=== PATIENT | female | born 1950 | race Caucasian/White ===

== ENCOUNTER → 2016-06-13 | Outpatient (REF) | payer MEDICARE, OTHER ==
[2016-06-13 12:20] LABS: INR 3.45
== END ==
LOC: M LABDRAW1 11:33
PROVIDERS: ATTEND Internal Medicine Pulmonary Disease
DX: Z86.718 Personal history of other venous thrombosis and embolism (principal); Z79.01 Long term (current) use of anticoagulants

== ENCOUNTER → 2016-07-04 | Outpatient (REF) | payer MEDICARE, OTHER ==
[2016-07-04 12:33] LABS: INR 2.94
== END ==
LOC: M LABDRAW1 11:45
PROVIDERS: ATTEND Internal Medicine Pulmonary Disease
DX: Z51.81 Encounter for therapeutic drug level monitoring (principal); Z79.01 Long term (current) use of anticoagulants; Z86.718 Personal history of other venous thrombosis and embolism

== ENCOUNTER → 2016-07-30 | Outpatient (REF) | payer MEDICARE, OTHER ==
[2016-07-30 16:12] LABS: INR 3.69
== END ==
LOC: M LABDRAW1 15:33
PROVIDERS: ATTEND Internal Medicine Pulmonary Disease
DX: Z51.81 Encounter for therapeutic drug level monitoring (principal); Z79.01 Long term (current) use of anticoagulants; Z86.718 Personal history of other venous thrombosis and embolism

== ENCOUNTER → 2016-08-22 | Outpatient (CLI) | payer MEDICARE, OTHER ==
--- NOTE | 2016-08-22 09:47 | REP ---
DIAGNOSTIC MAMMOGRAM RIGHT BREAST: Diagnostic mammogram right breast performed with routine and magnification views obtained. COMPARISON: 01/30/2016 and 01/18/2016 The cluster of microcalcifications in the upper outer quadrant of the right breast is again seen. There are a few new tiny calcifications present compared to the prior exam. Parenchymal pattern is unchanged. No other new mass or clusters microcalcifications are seen. IMPRESSION: There is a change in the cluster of microcalcifications in the upper outer quadrant of the right breast with a few new tiny calcifications present compared to the prior exam. Stereotactic biopsy is recommended. ACR 4 suspicious. B-RADS/ACR category 4 mammogram. Suspicious abnormality - biopsy should be considered. Usually requires biopsy. This mammogram was interpreted with the aid of an FDA-approved computer-aided detection system. The patient states that she/he has not had a clinical breast exam in over a year. Patient letter M4. Signed by Burt Chapa MD 08/22/2016 10:52 A
== END ==
LOC: M RAD 08:46
PROVIDERS: ATTEND Family Medicine
DX: R92.8 Other abnormal and inconclusive findings on diagnostic imaging of breast (principal); R92.0 Mammographic microcalcification found on diagnostic imaging of breast; R92.1 Mammographic calcification found on diagnostic imaging of breast

== ENCOUNTER → 2016-08-28 | Outpatient (REF) | payer MEDICARE, OTHER ==
[2016-08-28 13:31] LABS: INR 4.13
== END ==
LOC: M LABDRAW1 12:49
PROVIDERS: ATTEND Internal Medicine Pulmonary Disease
DX: Z51.81 Encounter for therapeutic drug level monitoring (principal); Z79.01 Long term (current) use of anticoagulants; Z86.718 Personal history of other venous thrombosis and embolism

== ENCOUNTER → 2016-08-28 | Outpatient (REF) | payer MEDICARE, OTHER ==
[2016-08-28 13:26] LABS: BASO # 0.1 K/mm3 (0.0-0.2); BASO % 0.9 % (0.0-1.0); EOS # 0.2 K/mm3 (0.0-0.50); EOS % 3.4 % (0.0-3.0); LARGE UNSTAINED CELL # 0.1 K/mm3 (0.0-0.4); LYMPH # 1.3 K/mm3 (1.5-4.5); MEAN CORPUSCULAR HEMOGLOBIN 31.1 pg (27.0-33.0); MEAN CORPUSCULAR VOLUME 94.3 fl (80.0-96.0); MONO # 0.4 K/mm3 (0.0-0.8); NEUTROPHILS % 67.7 % (36.0-66.0); PLATELET COUNT, AUTOMATED 302 k/mm3 (150-450); RED CELL DISTRIBUTION WIDTH 13.1 % (11.5-14.5)
[2016-08-28 13:49] LABS: ALBUMIN 3.5 GM/DL (3.2-5.2); ALKALINE PHOSPHATASE 65 U/L (45-117); ALT/SGPT 32 U/L (12-78); ANION GAP 6 MEQ/L (8-16); AST/SGOT 31 U/L (15-37); BILIRUBIN,TOTAL 0.4 MG/DL (0.2-1.0); BLOOD UREA NITROGEN 19 MG/DL (7-18); CALCIUM LEVEL 8.8 MG/DL (8.8-10.2); CARBON DIOXIDE LEVEL 28 MEQ/L (21-32); CHLORIDE LEVEL 110 MEQ/L (98-107); CHOLESTEROL LEVEL 151 MG/DL (<200); CREATININE FOR GFR 0.93 MG/DL (0.55-1.02); GLOMERULAR FILTRATION RATE > 60.0 (>45); GLUCOSE, FASTING 86 MG/DL (80-110); POTASSIUM SERUM 4.1 MEQ/L (3.5-5.1); SODIUM LEVEL 144 MEQ/L (136-145); TRIGLYCERIDES LEVEL 93 MG/DL (<150)
== END ==
LOC: M LABDRAW1 12:50
PROVIDERS: ATTEND Physician Assistant
DX: E78.2 Mixed hyperlipidemia (principal); Z78.1 Physical restraint status; Z51.81 Encounter for therapeutic drug level monitoring; Z79.01 Long term (current) use of anticoagulants; Z86.718 Personal history of other venous thrombosis and embolism; Z86.711 Personal history of pulmonary embolism

== ENCOUNTER → 2016-09-05 | Outpatient (REF) | payer MEDICARE, OTHER ==
[2016-09-05 12:11] LABS: INR 3.66
== END ==
LOC: M LABDRAW1 11:33
PROVIDERS: ATTEND Internal Medicine Pulmonary Disease
DX: Z51.81 Encounter for therapeutic drug level monitoring (principal); Z79.01 Long term (current) use of anticoagulants; Z86.718 Personal history of other venous thrombosis and embolism

== ENCOUNTER → 2016-09-26 | Outpatient (REF) | payer MEDICARE, OTHER ==
[2016-09-26 14:23] LABS: INR 2.62
== END ==
LOC: M LABDRAW1 11:35
PROVIDERS: ATTEND Internal Medicine Pulmonary Disease
DX: Z86.718 Personal history of other venous thrombosis and embolism (principal); Z79.01 Long term (current) use of anticoagulants

== ENCOUNTER → 2016-10-10 | Outpatient (REF) | payer MEDICARE, OTHER ==
[2016-10-10 13:44] LABS: INR 3.06
== END ==
LOC: M LABDRAW1 12:09
PROVIDERS: ATTEND Internal Medicine Pulmonary Disease
DX: Z51.81 Encounter for therapeutic drug level monitoring (principal); Z79.01 Long term (current) use of anticoagulants; Z86.718 Personal history of other venous thrombosis and embolism

== ENCOUNTER → 2016-10-30 | Outpatient (REF) | payer MEDICARE, OTHER ==
[2016-10-30 14:02] LABS: INR 2.97
== END ==
LOC: M LABDRAW1 10:41
PROVIDERS: ATTEND Internal Medicine Pulmonary Disease
DX: Z51.81 Encounter for therapeutic drug level monitoring (principal); Z79.01 Long term (current) use of anticoagulants; Z86.718 Personal history of other venous thrombosis and embolism

== ENCOUNTER → 2016-11-28 | Outpatient (REF) | payer MEDICARE, OTHER ==
[2016-11-28 14:26] LABS: INR 3.15
== END ==
LOC: M LABDRAW1 11:16
PROVIDERS: ATTEND Internal Medicine Pulmonary Disease
DX: Z51.81 Encounter for therapeutic drug level monitoring (principal); Z86.718 Personal history of other venous thrombosis and embolism; Z79.01 Long term (current) use of anticoagulants

== ENCOUNTER → 2016-12-30 | Outpatient (CLI) | payer MEDICARE, OTHER | LOC: M LABDRAW1 11:15 | PROVIDERS: ATTEND Internal Medicine Pulmonary Disease | DX: Z86.718 Personal history of other venous thrombosis and embolism (principal); Z79.01 Long term (current) use of anticoagulants ==

== ENCOUNTER → 2017-01-28 | Outpatient (REF) | payer MEDICARE, OTHER ==
[2017-01-28 13:36] LABS: INR 2.89
== END ==
LOC: M LAB REF 13:08
PROVIDERS: ATTEND Internal Medicine Pulmonary Disease
DX: Z86.718 Personal history of other venous thrombosis and embolism (principal); Z79.01 Long term (current) use of anticoagulants

== ENCOUNTER → 2017-06-04 | Outpatient (REF) | payer MEDICARE, OTHER ==
[2017-06-04 17:15] LABS: INR 2.33; PROTHROMBIN TIME 26.5 SECONDS (12.4-14.5)
== END ==
LOC: M LABDRAW1 15:55
DX: Z79.01 Long term (current) use of anticoagulants (principal)
CPT/HCPCS: 85610

== ENCOUNTER → 2017-06-18 | Outpatient (REF) | payer MEDICARE, OTHER ==
[2017-06-18 11:48] LABS: INR 2.76; PROTHROMBIN TIME 30.4 SECONDS (12.4-14.5)
== END ==
LOC: M LABDRAW1 09:02
DX: Z79.01 Long term (current) use of anticoagulants (principal); Z86.718 Personal history of other venous thrombosis and embolism
CPT/HCPCS: 85610

== ENCOUNTER → 2017-07-17 | Outpatient (REF) | payer MEDICARE, OTHER ==
[2017-07-17 12:23] LABS: INR 2.73; PROTHROMBIN TIME 30.1 SECONDS (12.4-14.5)
== END ==
LOC: M LABDRAW1 11:53
DX: Z51.81 Encounter for therapeutic drug level monitoring (principal); Z79.01 Long term (current) use of anticoagulants; Z86.718 Personal history of other venous thrombosis and embolism
CPT/HCPCS: 85610

== ENCOUNTER → 2017-08-27 | Outpatient (REF) | payer MEDICARE, OTHER ==
[2017-08-27 12:15] LABS: INR 2.62; PROTHROMBIN TIME 28.6 SECONDS (12.1-14.4)
== END ==
LOC: M LABDRAW1 09:20
DX: Z51.81 Encounter for therapeutic drug level monitoring (principal); Z79.01 Long term (current) use of anticoagulants; Z86.718 Personal history of other venous thrombosis and embolism

== ENCOUNTER → 2017-08-27 | Outpatient (REF) | payer MEDICARE, OTHER ==
[2017-08-27 12:03] LABS: HEMATOCRIT 42.9 % (36.0-47.0); MEAN CORPUSCULAR HEMOGLOBIN 30.2 pg (27.0-33.0); MEAN CORPUSCULAR HGB CONC 32.6 g/dl (32.0-36.5); MEAN CORPUSCULAR VOLUME 92.7 fl (80.0-96.0); PLATELET COUNT, AUTOMATED 352 10^3/uL (150-450); RED BLOOD COUNT 4.63 10^6/uL (4.00-5.40); RED CELL DISTRIBUTION WIDTH 13.9 % (11.5-14.5)
[2017-08-27 12:38] LABS: ALBUMIN 3.5 GM/DL (3.2-5.2); ALBUMIN/GLOBULIN RATIO 0.92 (1.00-1.93); ALKALINE PHOSPHATASE 87 U/L (45-117); ALT/SGPT 32 U/L (12-78); ANION GAP 8 MEQ/L (8-16); AST/SGOT 26 U/L (7-37); BILIRUBIN,TOTAL 0.4 MG/DL (0.2-1.0); BLOOD UREA NITROGEN 24 MG/DL (7-18); CALCIUM LEVEL 8.5 MG/DL (8.8-10.2); CARBON DIOXIDE LEVEL 27 MEQ/L (21-32); CHLORIDE LEVEL 111 MEQ/L (98-107); CHOLESTEROL LEVEL 170 MG/DL (<200); CHOLESTEROL RISK RATIO 2.982 (<5); CREATININE FOR GFR 0.95 MG/DL (0.55-1.30); FREE T4 1.23 NG/DL (0.76-1.46); GLOMERULAR FILTRATION RATE > 60.0 (>45); GLUCOSE, FASTING 89 MG/DL (70-100); HDL CHOLESTEROL 57 MG/DL (>40); LDL CHOLESTEROL 89.8 MG/DL (<100); NON-HDL-C 113 MG/DL; POTASSIUM SERUM 4.6 MEQ/L (3.5-5.1); SODIUM LEVEL 146 MEQ/L (136-145); TOTAL PROTEIN 7.3 GM/DL (6.4-8.2); TRIGLYCERIDES LEVEL 116 MG/DL (<150)
== END ==
LOC: M LABDRAW1 09:21
DX: Z00.00 Encounter for general adult medical examination without abnormal findings (principal); Z13.220 Encounter for screening for lipoid disorders; E78.2 Mixed hyperlipidemia; Z51.81 Encounter for therapeutic drug level monitoring; Z79.01 Long term (current) use of anticoagulants; Z13.29 Encounter for screening for other suspected endocrine disorder; Z13.0 Encounter for screening for diseases of the blood and blood-forming organs and certain disorders involving the immune mechanism; Z88.8 Allergy status to other drugs, medicaments and biological substances; Z86.718 Personal history of other venous thrombosis and embolism; Z86.711 Personal history of pulmonary embolism
CPT/HCPCS: 84443

== ENCOUNTER → 2017-09-25 | Outpatient (REF) | payer MEDICARE, OTHER ==
[2017-09-25 16:10] LABS: INR 2.98; PROTHROMBIN TIME 31.6 SECONDS (12.1-14.4)
== END ==
LOC: M LABDRAW1 13:59
DX: Z51.81 Encounter for therapeutic drug level monitoring (principal); Z79.01 Long term (current) use of anticoagulants; Z86.718 Personal history of other venous thrombosis and embolism
CPT/HCPCS: 85610

== ENCOUNTER → 2017-09-30 | Outpatient (REF) | payer MEDICARE, OTHER | LOC: M LAB REF 08:27 | DX: Z12.4 Encounter for screening for malignant neoplasm of cervix (principal) | CPT/HCPCS: G0123 ==

== ENCOUNTER → 2017-10-02 | Outpatient (REF) | payer MEDICARE, OTHER ==
[2017-10-02 14:05] LABS: INR 2.87; PROTHROMBIN TIME 30.7 SECONDS (12.1-14.4)
== END ==
LOC: M LABDRAW1 13:28
DX: Z51.81 Encounter for therapeutic drug level monitoring (principal); Z79.01 Long term (current) use of anticoagulants; Z86.718 Personal history of other venous thrombosis and embolism
CPT/HCPCS: 85610

== ENCOUNTER → 2017-10-08 | Outpatient (REF) | payer MEDICARE, OTHER ==
[2017-10-08 12:40] LABS: INR 2.99; PROTHROMBIN TIME 31.7 SECONDS (12.1-14.4)
== END ==
LOC: M LABDRAW1 11:56
DX: Z51.81 Encounter for therapeutic drug level monitoring (principal); Z79.01 Long term (current) use of anticoagulants; Z86.718 Personal history of other venous thrombosis and embolism
CPT/HCPCS: 85610

== ENCOUNTER → 2017-10-27 | Outpatient (REF) | payer MEDICARE, OTHER ==
[2017-10-27 15:47] LABS: INR 3.43; PROTHROMBIN TIME 35.4 SECONDS (12.1-14.4)
== END ==
LOC: M LABDRAW1 14:28
DX: Z79.01 Long term (current) use of anticoagulants (principal)
CPT/HCPCS: 85610

== ENCOUNTER → 2017-11-25 | Outpatient (REF) | payer MEDICARE, OTHER ==
[2017-11-25 17:22] LABS: INR 2.26; PROTHROMBIN TIME 25.4 SECONDS (12.1-14.4)
== END ==
LOC: M LABDRAW1 16:51
DX: Z51.81 Encounter for therapeutic drug level monitoring (principal); Z79.01 Long term (current) use of anticoagulants; Z86.718 Personal history of other venous thrombosis and embolism
CPT/HCPCS: 85610

== ENCOUNTER → 2017-12-19 | Outpatient (REF) | payer MEDICARE, OTHER ==
[2017-12-19 13:04] LABS: INR 2.64; PROTHROMBIN TIME 28.7 SECONDS (12.1-14.4)
== END ==
LOC: M LABDRAW1 12:22
DX: Z79.01 Long term (current) use of anticoagulants (principal); Z86.718 Personal history of other venous thrombosis and embolism
CPT/HCPCS: 85610

== ENCOUNTER 2017-12-24 09:58 | Day surgery (SDC) | payer MEDICARE, OTHER ==
[2017-12-24] MEDS: NS 1,000 ML IV (06:00)
[~2017-12-24 09:58] MED LIST: LIDOCAINE 2% INJ 100 MG/5 ML SDV (FOR ANES.) As Ordered; PROPOFOL 200 MG/20 ML VIAL As Ordered
== END 2017-12-24 12:47 | disposition home or self-care (01) ==
LOC: M OPP 09:58
DX: Z12.11 Encounter for screening for malignant neoplasm of colon (principal); K64.1 Second degree hemorrhoids
CPT/HCPCS: G0121

== ENCOUNTER → 2018-01-19 | Outpatient (REF) | payer MEDICARE, OTHER ==
[2018-01-19 16:15] LABS: PROTHROMBIN TIME 28.4 SECONDS (12.1-14.4)
== END ==
LOC: M LABDRAW1 11:46
DX: Z51.81 Encounter for therapeutic drug level monitoring (principal); Z79.01 Long term (current) use of anticoagulants; Z86.718 Personal history of other venous thrombosis and embolism
CPT/HCPCS: 85610

== ENCOUNTER → 2018-04-01 | Outpatient (REF) | payer MEDICARE, OTHER ==
[~2018-04-01] MED LIST changes: +CALTCHW5 PO; +COUM2TAB22 PO; -LIDOCAINE 2% INJ 100 MG/5 ML SDV (FOR ANES.) As Ordered; +MULTCAP PO; +OSTETAB3 PO; -PROPOFOL 200 MG/20 ML VIAL As Ordered; +ROSU5TAB4 PO; +WARF4TAB51 PO
[2018-04-01 12:59] LABS: INR 2.69; PROTHROMBIN TIME 29.2 SECONDS (12.1-14.4)
== END ==
LOC: M LABDRAW1 08:51
PROVIDERS: ATTEND Internal Medicine Pulmonary Disease
DX: Z79.01 Long term (current) use of anticoagulants (principal); Z86.718 Personal history of other venous thrombosis and embolism

== ENCOUNTER → 2018-05-27 | Outpatient (REF) | payer MEDICARE, OTHER ==
[2018-05-27 18:24] LABS: INR 2.33
== END ==
LOC: M LABDRAW1 17:23
PROVIDERS: ATTEND Internal Medicine Pulmonary Disease
DX: Z51.81 Encounter for therapeutic drug level monitoring (principal); Z79.01 Long term (current) use of anticoagulants; Z86.718 Personal history of other venous thrombosis and embolism

== ENCOUNTER → 2018-07-01 | Outpatient (REF) | payer MEDICARE, OTHER ==
[2018-07-01 12:45] LABS: INR 2.42; PROTHROMBIN TIME 26.8 SECONDS (12.1-14.4)
== END ==
LOC: M LABDRAW1 12:10
PROVIDERS: ATTEND Internal Medicine Pulmonary Disease
DX: Z79.01 Long term (current) use of anticoagulants (principal); Z86.718 Personal history of other venous thrombosis and embolism

== ENCOUNTER → 2018-07-29 | Outpatient (REF) | payer MEDICARE, OTHER ==
[2018-07-29 15:58] LABS: INR 2.82; PROTHROMBIN TIME 29.6 SECONDS (11.8-14.0)
== END ==
LOC: M LABDRAW1 14:46
PROVIDERS: ATTEND Internal Medicine Pulmonary Disease
DX: Z79.01 Long term (current) use of anticoagulants (principal); Z86.718 Personal history of other venous thrombosis and embolism

== ENCOUNTER → 2018-08-24 | Outpatient (REF) | payer MEDICARE, OTHER ==
[~2018-08-24] MED LIST changes: -ROSU5TAB4 PO; +ROSU5TAB5 PO
[2018-08-24 11:52] LABS: BASO % 0.7 % (0.0-1.0); EOS # 0.2 10^3/uL (0.0-0.50); EOS % 3.7 % (0.0-3.0); HEMATOCRIT 43.8 % (36.0-47.0); HEMOGLOBIN 14.1 g/dl (12.0-15.5); LYMPH # 1.5 10^3/uL (1.5-4.5); MEAN CORPUSCULAR HEMOGLOBIN 30.6 pg (27.0-33.0); MEAN CORPUSCULAR HGB CONC 32.2 g/dl (32.0-36.5); MONO # 0.5 10^3/uL (0.0-0.8); MONO % 8.4 % (0.0-5.0); NEUTROPHILS # 3.5 10^3/uL (1.8-7.7); NEUTROPHILS % 60.8 % (36.0-66.0); PLATELET COUNT, AUTOMATED 287 10^3/uL (150-450); RED BLOOD COUNT 4.61 10^6/uL (4.00-5.40); WHITE BLOOD COUNT 5.7 10^3/uL (4.0-10.0)
[2018-08-24 12:34] LABS: ALBUMIN 3.5 GM/DL (3.2-5.2); ALT/SGPT 31 U/L (12-78); BILIRUBIN,TOTAL 0.4 MG/DL (0.2-1.0); BLOOD UREA NITROGEN 26 MG/DL (7-18); CALCIUM LEVEL 8.9 MG/DL (8.8-10.2); CARBON DIOXIDE LEVEL 26 MEQ/L (21-32); CHLORIDE LEVEL 110 MEQ/L (98-107); CHOLESTEROL LEVEL 213 MG/DL (<200); CHOLESTEROL RISK RATIO 3.872 (<5); CREATININE FOR GFR 0.84 MG/DL (0.55-1.30); FREE T4 1.15 NG/DL (0.76-1.46); GLOMERULAR FILTRATION RATE > 60.0 (>39); GLUCOSE, FASTING 88 MG/DL (70-100); HDL CHOLESTEROL 55 MG/DL (>40); LDL CHOLESTEROL 136 MG/DL (<100); NON-HDL-C 158 MG/DL; POTASSIUM SERUM 4.2 MEQ/L (3.5-5.1); SODIUM LEVEL 144 MEQ/L (136-145); TRIGLYCERIDES LEVEL 109 MG/DL (<150)
== END ==
LOC: M LABDRAW1 08:16
PROVIDERS: ATTEND Physician Assistant
DX: E78.5 Hyperlipidemia, unspecified (principal); Z86.711 Personal history of pulmonary embolism; Z79.01 Long term (current) use of anticoagulants; Z86.718 Personal history of other venous thrombosis and embolism

== ENCOUNTER → 2018-08-24 | Outpatient (REF) | payer MEDICARE, OTHER ==
[2018-08-24 12:03] LABS: INR 2.43; PROTHROMBIN TIME 26.2 SECONDS (11.8-14.0)
== END ==
LOC: M LABDRAW1 08:13
PROVIDERS: ATTEND Internal Medicine Pulmonary Disease
DX: Z79.01 Long term (current) use of anticoagulants (principal); Z86.718 Personal history of other venous thrombosis and embolism

== ENCOUNTER → 2018-09-30 | Outpatient (REF) | payer MEDICARE, OTHER ==
[2018-09-30 12:39] LABS: INR 2.46; PROTHROMBIN TIME 26.5 SECONDS (11.8-14.0)
== END ==
LOC: M LABDRAW1 10:48
PROVIDERS: ATTEND Internal Medicine Pulmonary Disease
DX: Z79.01 Long term (current) use of anticoagulants (principal); Z86.718 Personal history of other venous thrombosis and embolism

== ENCOUNTER → 2018-10-27 | Outpatient (REF) | payer MEDICARE, OTHER ==
[2018-10-27 12:36] LABS: INR 2.75
== END ==
LOC: M LABDRAW1 09:43
PROVIDERS: ATTEND Internal Medicine Pulmonary Disease
DX: Z86.718 Personal history of other venous thrombosis and embolism (principal); Z79.01 Long term (current) use of anticoagulants

== ENCOUNTER → 2018-11-24 | Outpatient (REF) | payer MEDICARE, OTHER ==
[2018-11-24 17:10] LABS: INR 3.58; PROTHROMBIN TIME 35.8 SECONDS (11.8-14.0)
== END ==
LOC: M LABDRAW1 14:09
PROVIDERS: ATTEND Internal Medicine Pulmonary Disease
DX: Z86.718 Personal history of other venous thrombosis and embolism (principal); Z79.01 Long term (current) use of anticoagulants

== ENCOUNTER → 2018-12-28 | Outpatient (REF) | payer MEDICARE, OTHER ==
[2018-12-28 18:10] LABS: INR 2.75
== END ==
LOC: M LABDRAW1 16:43
PROVIDERS: ATTEND Internal Medicine Pulmonary Disease
DX: Z86.718 Personal history of other venous thrombosis and embolism (principal); Z79.01 Long term (current) use of anticoagulants

== ENCOUNTER → 2019-01-26 | Outpatient (REF) | payer MEDICARE, OTHER ==
[2019-01-26 11:59] LABS: INR 3.58; PROTHROMBIN TIME 35.8 SECONDS (11.8-14.0)
== END ==
LOC: M LABDRAW1 09:49
PROVIDERS: ATTEND Internal Medicine Pulmonary Disease
DX: Z86.718 Personal history of other venous thrombosis and embolism (principal); Z79.01 Long term (current) use of anticoagulants

== ENCOUNTER → 2019-06-17 | Outpatient (CLI) | payer MEDICARE, OTHER ==
[2019-06-17 17:33] LABS: INR 3.16; PROTHROMBIN TIME 32.4 SECONDS (11.8-14.0)
== END ==
LOC: M PLALAB 14:53
PROVIDERS: ATTEND Internal Medicine Pulmonary Disease
DX: Z86.718 Personal history of other venous thrombosis and embolism (principal); Z79.01 Long term (current) use of anticoagulants

== ENCOUNTER → 2019-07-13 | Outpatient (CLI) | payer MEDICARE, OTHER ==
[2019-07-13 11:43] LABS: INR 3.57; PROTHROMBIN TIME 35.7 SECONDS (11.8-14.0)
== END ==
LOC: M PLALAB 10:02
PROVIDERS: ATTEND Internal Medicine Pulmonary Disease
DX: Z51.81 Encounter for therapeutic drug level monitoring (principal); Z86.718 Personal history of other venous thrombosis and embolism; Z79.01 Long term (current) use of anticoagulants

== ENCOUNTER → 2019-07-26 | Outpatient (CLI) | payer MEDICARE, OTHER ==
[2019-07-26 13:09] LABS: INR 3.78; PROTHROMBIN TIME 37.4 SECONDS (11.8-14.0)
== END ==
LOC: M PLALAB 10:35
PROVIDERS: ATTEND Internal Medicine Pulmonary Disease
DX: Z86.718 Personal history of other venous thrombosis and embolism (principal); Z79.01 Long term (current) use of anticoagulants

== ENCOUNTER → 2019-08-12 | Outpatient (CLI) | payer MEDICARE, OTHER ==
[2019-08-12 11:52] LABS: INR 2.05; PROTHROMBIN TIME 22.9 SECONDS (11.8-14.0)
== END ==
LOC: M PLALAB 09:46
PROVIDERS: ATTEND Internal Medicine Pulmonary Disease
DX: Z79.01 Long term (current) use of anticoagulants (principal)

== ENCOUNTER → 2019-08-30 | Outpatient (CLI) | payer MEDICARE, OTHER ==
[2019-08-30 13:54] LABS: BASO # 0.1 10^3/uL (0.0-0.2); EOS # 0.2 10^3/uL (0.0-0.5); EOS % 3.6 % (0.0-3.0); HEMATOCRIT 43.5 % (36.0-47.0); HEMOGLOBIN 13.6 g/dl (12.0-15.5); LYMPH # 1.5 10^3/uL (1.5-5.0); LYMPH % 24.7 % (24.0-44.0); MEAN CORPUSCULAR HGB CONC 31.3 g/dl (32.0-36.5); MEAN CORPUSCULAR VOLUME 99.1 fl (80.0-96.0); MONO # 0.5 10^3/uL (0.0-0.8); MONO % 8.9 % (0.0-5.0); NEUTROPHILS # 3.7 10^3/uL (1.5-8.5); NEUTROPHILS % 61.6 % (36.0-66.0); PLATELET COUNT, AUTOMATED 283 10^3/uL (150-450); RED BLOOD COUNT 4.39 10^6/uL (4.00-5.40); WHITE BLOOD COUNT 6.1 10^3/uL (4.0-10.0)
[2019-08-30 14:06] LABS: INR 2.46; PROTHROMBIN TIME 26.5 SECONDS (11.8-14.0)
[2019-08-30 14:19] LABS: ALBUMIN 3.6 GM/DL (3.2-5.2); ALT/SGPT 35 U/L (12-78); BILIRUBIN,TOTAL 0.4 MG/DL (0.2-1.0); BLOOD UREA NITROGEN 25 MG/DL (7-18); CALCIUM LEVEL 9.1 MG/DL (8.8-10.2); CARBON DIOXIDE LEVEL 28 MEQ/L (21-32); CHLORIDE LEVEL 110 MEQ/L (98-107); CHOLESTEROL LEVEL 159 MG/DL (<200); CREATININE FOR GFR 0.87 MG/DL (0.55-1.30); FREE T4 1.18 NG/DL (0.76-1.46); GLOMERULAR FILTRATION RATE > 60.0 (>39); GLUCOSE, FASTING 90 MG/DL (70-100); HDL CHOLESTEROL 60 MG/DL (>40); LDL CHOLESTEROL 85 MG/DL (<100); NON-HDL-C 99 MG/DL; POTASSIUM SERUM 4.3 MEQ/L (3.5-5.1); SODIUM LEVEL 143 MEQ/L (136-145); THYROID STIMULATING HORMONE 0.951 uIU/ML (0.358-3.740); TOTAL PROTEIN 6.9 GM/DL (6.4-8.2); TRIGLYCERIDES LEVEL 71 MG/DL (<150)
== END ==
LOC: M PLALAB 08:14
PROVIDERS: ATTEND Internal Medicine Pulmonary Disease
DX: E78.00 Pure hypercholesterolemia, unspecified (principal); Z79.01 Long term (current) use of anticoagulants

== ENCOUNTER → 2019-09-23 | Outpatient (REF) | payer MEDICARE, OTHER ==
[2019-10-27 10:53] LABS: PROTHROMBIN TIME 23.1 SECONDS (11.8-14.0)
== END ==
LOC: M PLALAB 15:01
PROVIDERS: ATTEND Internal Medicine Pulmonary Disease
DX: Z79.01 Long term (current) use of anticoagulants (principal)

== ENCOUNTER → 2019-10-12 | Outpatient (CLI) | payer MEDICARE, OTHER ==
[2019-10-12 13:06] LABS: INR 2.82; PROTHROMBIN TIME 30.3 SECONDS (11.8-14.0)
== END ==
LOC: M PLALAB 08:46
PROVIDERS: ATTEND Internal Medicine Pulmonary Disease
DX: Z51.81 Encounter for therapeutic drug level monitoring (principal); Z79.01 Long term (current) use of anticoagulants

== ENCOUNTER → 2019-11-11 | Outpatient (CLI) | payer MEDICARE, OTHER ==
[2019-11-11 14:22] LABS: INR 3.15; PROTHROMBIN TIME 33.1 SECONDS (12.5-14.3)
== END ==
LOC: M PLALAB 10:47
PROVIDERS: ATTEND Internal Medicine Pulmonary Disease
DX: Z79.01 Long term (current) use of anticoagulants (principal)

== ENCOUNTER → 2019-12-15 | Outpatient (CLI) | payer MEDICARE, OTHER ==
[2019-12-15 14:13] LABS: INR 3.17; PROTHROMBIN TIME 33.2 SECONDS (12.5-14.3)
== END ==
LOC: M PLALAB 10:22
PROVIDERS: ATTEND Internal Medicine Pulmonary Disease
DX: Z51.81 Encounter for therapeutic drug level monitoring (principal); Z79.01 Long term (current) use of anticoagulants

== ENCOUNTER → 2020-01-12 | Outpatient (CLI) | payer MEDICARE, OTHER ==
[2020-01-12 14:13] LABS: INR 2.35; PROTHROMBIN TIME 26.3 SECONDS (12.5-14.3)
== END ==
LOC: M PLALAB 11:04
PROVIDERS: ATTEND Internal Medicine Pulmonary Disease
DX: Z79.01 Long term (current) use of anticoagulants (principal)

== ENCOUNTER → 2020-01-27 | Outpatient (CLI) | payer MEDICARE, OTHER ==
[2020-01-27 12:14] LABS: INR 3.06; PROTHROMBIN TIME 32.3 SECONDS (12.5-14.3)
[2020-01-27 14:25] LABS: ALBUMIN 3.6 GM/DL (3.2-5.2); ALT/SGPT 31 U/L (12-78); BILIRUBIN,TOTAL 0.4 MG/DL (0.2-1.0); BLOOD UREA NITROGEN 27 MG/DL (7-18); CARBON DIOXIDE LEVEL 29 MEQ/L (21-32); CHLORIDE LEVEL 107 MEQ/L (98-107); CHOLESTEROL LEVEL 172 MG/DL (<200); CHOLESTEROL RISK RATIO 2.646 (<5); CREATININE FOR GFR 0.89 MG/DL (0.55-1.30); GLOMERULAR FILTRATION RATE > 60.0 (>39); GLUCOSE, FASTING 83 MG/DL (70-100); HDL CHOLESTEROL 65 MG/DL (>40); LDL CHOLESTEROL 87 MG/DL (<100); NON-HDL-C 107 MG/DL; POTASSIUM SERUM 4.2 MEQ/L (3.5-5.1); SODIUM LEVEL 142 MEQ/L (136-145); TOTAL PROTEIN 6.8 GM/DL (6.4-8.2); TRIGLYCERIDES LEVEL 99 MG/DL (<150)
== END ==
LOC: M PLALAB 08:44
PROVIDERS: ATTEND Internal Medicine Pulmonary Disease
DX: E78.00 Pure hypercholesterolemia, unspecified (principal); Z79.01 Long term (current) use of anticoagulants

== ENCOUNTER → 2020-02-28 | Outpatient (CLI) | payer MEDICARE, OTHER ==
[2020-02-28 14:01] LABS: INR 2.68; PROTHROMBIN TIME 29.2 SECONDS (12.5-14.3)
== END ==
LOC: M PLALAB 11:06
PROVIDERS: ATTEND Internal Medicine Pulmonary Disease
DX: I26.99 Other pulmonary embolism without acute cor pulmonale (principal)

== ENCOUNTER → 2020-06-05 | Outpatient (CLI) | payer MEDICARE, OTHER ==
[2020-06-05 11:43] LABS: INR 3.03; PROTHROMBIN TIME 32.1 SECONDS (12.5-14.3)
== END ==
LOC: M PLALAB 09:06
PROVIDERS: ATTEND Internal Medicine Pulmonary Disease
DX: I26.99 Other pulmonary embolism without acute cor pulmonale (principal)

== ENCOUNTER → 2020-06-20 | Outpatient (REF) | payer MEDICARE, OTHER ==
[2020-06-20 12:01] LABS: INR 3.7; PROTHROMBIN TIME 37.5 SECONDS (12.5-14.3)
== END ==
LOC: M PLALAB 11:06 → M LAB REF 11:06
PROVIDERS: ATTEND Internal Medicine Pulmonary Disease
DX: I26.99 Other pulmonary embolism without acute cor pulmonale (principal)

== ENCOUNTER → 2020-06-27 | Outpatient (CLI) | payer MEDICARE, OTHER ==
[2020-06-27 13:51] LABS: INR 2.61; PROTHROMBIN TIME 28.5 SECONDS (12.5-14.3)
== END ==
LOC: M PLALAB 09:37
PROVIDERS: ATTEND Internal Medicine Pulmonary Disease
DX: I26.99 Other pulmonary embolism without acute cor pulmonale (principal)

== ENCOUNTER → 2020-07-11 | Outpatient (CLI) | payer MEDICARE, OTHER ==
[2020-07-11 14:07] LABS: INR 4.11; PROTHROMBIN TIME 40.8 SECONDS (12.5-14.3)
== END ==
LOC: M PLALAB 09:39
PROVIDERS: ATTEND Internal Medicine Pulmonary Disease
DX: I26.99 Other pulmonary embolism without acute cor pulmonale (principal)

== ENCOUNTER → 2020-07-19 | Outpatient (REF) | payer MEDICARE, OTHER ==
[2020-07-19 11:33] LABS: INR 2.28; PROTHROMBIN TIME 25.6 SECONDS (12.5-14.3)
== END ==
LOC: M PLALAB 09:53
PROVIDERS: ATTEND Internal Medicine Pulmonary Disease
DX: I26.99 Other pulmonary embolism without acute cor pulmonale (principal)

== ENCOUNTER → 2020-08-02 | Outpatient (REF) | payer MEDICARE, OTHER ==
[2020-08-02 18:29] LABS: INR 3.5; PROTHROMBIN TIME 35.9 SECONDS (12.5-14.3)
== END ==
LOC: M LAB REF 17:17
PROVIDERS: ATTEND Internal Medicine Pulmonary Disease
DX: I26.99 Other pulmonary embolism without acute cor pulmonale (principal)

== ENCOUNTER → 2020-08-23 | Outpatient (CLI) | payer MEDICARE, OTHER ==
[2020-08-23 11:30] LABS: INR 3.47; PROTHROMBIN TIME 35.7 SECONDS (12.5-14.3)
== END ==
LOC: M PLALAB 08:46
PROVIDERS: ATTEND Internal Medicine Pulmonary Disease
DX: I26.99 Other pulmonary embolism without acute cor pulmonale (principal)

== ENCOUNTER → 2020-08-23 | Outpatient (CLI) | payer MEDICARE, OTHER ==
[2020-08-23 11:17] LABS: BASO # 0.1 10^3/uL (0.0-0.2); BASO % 0.8 % (0.0-1.0); EOS # 0.3 10^3/uL (0.0-0.5); EOS % 3.5 % (0.0-3.0); HEMATOCRIT 42.8 % (36.0-47.0); HEMOGLOBIN 13.5 g/dl (12.0-15.5); LYMPH # 1.4 10^3/uL (1.5-5.0); LYMPH % 20.3 % (24.0-44.0); MEAN CORPUSCULAR HEMOGLOBIN 30.5 pg (27.0-33.0); MEAN CORPUSCULAR HGB CONC 31.5 g/dl (32.0-36.5); MEAN CORPUSCULAR VOLUME 96.6 fl (80.0-96.0); MONO # 0.5 10^3/uL (0.0-0.8); MONO % 7.2 % (2.0-8.0); NEUTROPHILS # 4.8 10^3/uL (1.5-8.5); NEUTROPHILS % 67.9 % (36.0-66.0); PLATELET COUNT, AUTOMATED 347 10^3/uL (150-450); RED BLOOD COUNT 4.43 10^6/uL (4.00-5.40); WHITE BLOOD COUNT 7.1 10^3/uL (4.0-10.0)
[2020-08-23 12:04] LABS: ALBUMIN 3.4 GM/DL (3.2-5.2); ALT/SGPT 30 U/L (12-78); BILIRUBIN,TOTAL 0.6 MG/DL (0.2-1.0); BLOOD UREA NITROGEN 18 MG/DL (7-18); CALCIUM LEVEL 8.7 MG/DL (8.8-10.2); CARBON DIOXIDE LEVEL 28 MEQ/L (21-32); CHLORIDE LEVEL 110 MEQ/L (98-107); CHOLESTEROL LEVEL 175 MG/DL (<200); CHOLESTEROL RISK RATIO 2.868 (<5); CREATININE FOR GFR 0.78 MG/DL (0.55-1.30); FREE T4 1.12 NG/DL (0.76-1.46); GLOMERULAR FILTRATION RATE > 60.0 (>39); GLUCOSE, FASTING 80 MG/DL (70-100); HDL CHOLESTEROL 61 MG/DL (>40); LDL CHOLESTEROL 96 MG/DL (<100); NON-HDL-C 114 MG/DL; POTASSIUM SERUM 4.5 MEQ/L (3.5-5.1); SODIUM LEVEL 142 MEQ/L (136-145); TRIGLYCERIDES LEVEL 90 MG/DL (<150)
== END ==
LOC: M PLALAB 08:48
PROVIDERS: ATTEND Family Medicine
DX: E78.00 Pure hypercholesterolemia, unspecified (principal); I26.99 Other pulmonary embolism without acute cor pulmonale

== ENCOUNTER → 2020-09-20 | Outpatient (CLI) | payer MEDICARE, OTHER ==
[2020-09-20 14:01] LABS: INR 3.03; PROTHROMBIN TIME 31.7 SECONDS (12.7-14.5)
== END ==
LOC: M PLALAB 09:24
PROVIDERS: ATTEND Internal Medicine Pulmonary Disease
DX: I26.99 Other pulmonary embolism without acute cor pulmonale (principal)

== ENCOUNTER → 2020-10-25 | Outpatient (CLI) | payer MEDICARE, OTHER ==
[2020-10-25 14:02] LABS: INR 3.98
== END ==
LOC: M PLALAB 10:17
PROVIDERS: ATTEND Internal Medicine Pulmonary Disease
DX: I26.99 Other pulmonary embolism without acute cor pulmonale (principal)

== ENCOUNTER → 2020-11-29 | Outpatient (CLI) | payer MEDICARE, OTHER ==
[2020-11-29 15:34] LABS: INR 3.84
== END ==
LOC: M PLALAB 12:46
PROVIDERS: ATTEND Internal Medicine Pulmonary Disease
DX: I26.99 Other pulmonary embolism without acute cor pulmonale (principal)

== ENCOUNTER → 2020-12-28 | Outpatient (CLI) | payer MEDICARE, OTHER ==
[2020-12-28 14:13] LABS: INR 4.31; PROTHROMBIN TIME 41.5 SECONDS (12.7-14.5)
== END ==
LOC: M PLALAB 11:11
PROVIDERS: ATTEND Internal Medicine Pulmonary Disease
DX: I26.99 Other pulmonary embolism without acute cor pulmonale (principal); Z79.01 Long term (current) use of anticoagulants

== ENCOUNTER → 2021-01-23 | Outpatient (CLI) | payer MEDICARE, OTHER ==
[2021-01-23 15:29] LABS: PROTHROMBIN TIME 48.2 SECONDS (12.7-14.5)
[2021-01-23 15:34] LABS: INR 5.24
== END ==
LOC: M PLALAB 12:37
PROVIDERS: ATTEND Internal Medicine Pulmonary Disease
DX: I26.99 Other pulmonary embolism without acute cor pulmonale (principal)

== ENCOUNTER → 2021-01-30 | Outpatient (CLI) | payer MEDICARE, OTHER ==
[2021-01-30 11:14] LABS: INR 2.4; PROTHROMBIN TIME 26.5 SECONDS (12.7-14.5)
== END ==
LOC: M PLALAB 08:20
PROVIDERS: ATTEND Internal Medicine Pulmonary Disease
DX: I26.99 Other pulmonary embolism without acute cor pulmonale (principal)

== ENCOUNTER → 2021-01-30 | Outpatient (CLI) | payer MEDICARE, OTHER ==
[2021-01-30 11:38] LABS: ALBUMIN 3.4 GM/DL (3.2-5.2); ALT/SGPT 28 U/L (12-78); BILIRUBIN,TOTAL 0.5 MG/DL (0.2-1.0); BLOOD UREA NITROGEN 19 MG/DL (7-18); CALCIUM LEVEL 8.9 MG/DL (8.8-10.2); CARBON DIOXIDE LEVEL 29 MEQ/L (21-32); CHLORIDE LEVEL 109 MEQ/L (98-107); CHOLESTEROL LEVEL 154 MG/DL (<200); CHOLESTEROL RISK RATIO 2.369 (<5); CREATININE FOR GFR 0.81 MG/DL (0.55-1.30); GLOMERULAR FILTRATION RATE > 60.0 (>39); GLUCOSE, FASTING 93 MG/DL (70-100); HDL CHOLESTEROL 65 MG/DL (>40); LDL CHOLESTEROL 75 MG/DL (<100); NON-HDL-C 89 MG/DL; POTASSIUM SERUM 3.9 MEQ/L (3.5-5.1); SODIUM LEVEL 142 MEQ/L (136-145); TOTAL PROTEIN 6.6 GM/DL (6.4-8.2); TRIGLYCERIDES LEVEL 68 MG/DL (<150)
== END ==
LOC: M PLALAB 08:24
PROVIDERS: ATTEND Family Medicine
DX: E78.00 Pure hypercholesterolemia, unspecified (principal)

== ENCOUNTER → 2021-02-27 | Outpatient (CLI) | payer MEDICARE, OTHER ==
[2021-02-27 17:55] LABS: INR 3.26; PROTHROMBIN TIME 33.5 SECONDS (12.7-14.5)
== END ==
LOC: M PLALAB 15:11
PROVIDERS: ATTEND Nurse Practitioner Adult Health
DX: I26.99 Other pulmonary embolism without acute cor pulmonale (principal)

== ENCOUNTER → 2021-03-27 | Outpatient (CLI) | payer MEDICARE, OTHER ==
[2021-03-27 15:38] LABS: INR 2.99; PROTHROMBIN TIME 31.4 SECONDS (12.7-14.5)
== END ==
LOC: M PLALAB 12:19
PROVIDERS: ATTEND Nurse Practitioner Adult Health
DX: I26.99 Other pulmonary embolism without acute cor pulmonale (principal)

== ENCOUNTER → 2021-04-24 | Outpatient (CLI) | payer MEDICARE, OTHER ==
[2021-04-24 15:47] LABS: INR 2.43; PROTHROMBIN TIME 26.8 SECONDS (12.7-14.5)
== END ==
LOC: M PLALAB 13:44
PROVIDERS: ATTEND Nurse Practitioner Adult Health
DX: I26.99 Other pulmonary embolism without acute cor pulmonale (principal)

== ENCOUNTER → 2021-05-24 | Outpatient (CLI) | payer MEDICARE, OTHER ==
[2021-05-24 14:48] LABS: INR 3.3; PROTHROMBIN TIME 33.8 SECONDS (12.7-14.5)
== END ==
LOC: M PLALAB 11:26
PROVIDERS: ATTEND Nurse Practitioner Adult Health
DX: I26.99 Other pulmonary embolism without acute cor pulmonale (principal)

== ENCOUNTER → 2021-06-29 | Outpatient (CLI) | payer MEDICARE, OTHER ==
[2021-06-29 10:36] LABS: INR 4.5; PROTHROMBIN TIME 42.9 SECONDS (12.7-14.5)
== END ==
LOC: M PLALAB 08:48
PROVIDERS: ATTEND Nurse Practitioner Adult Health
DX: I26.99 Other pulmonary embolism without acute cor pulmonale (principal)

== ENCOUNTER → 2021-07-17 | Outpatient (CLI) | payer MEDICARE, OTHER ==
[2021-07-17 15:23] LABS: INR 3.53; PROTHROMBIN TIME 35.6 SECONDS (12.7-14.5)
== END ==
LOC: M PLALAB 12:40
PROVIDERS: ATTEND Nurse Practitioner Adult Health
DX: I26.99 Other pulmonary embolism without acute cor pulmonale (principal); Z79.01 Long term (current) use of anticoagulants

== ENCOUNTER → 2021-08-01 | Outpatient (CLI) | payer MEDICARE, OTHER ==
[2021-08-01 15:58] LABS: INR 3.22; PROTHROMBIN TIME 33.2 SECONDS (12.7-14.5)
== END ==
LOC: M PLALAB 12:12
PROVIDERS: ATTEND Nurse Practitioner Adult Health
DX: I26.99 Other pulmonary embolism without acute cor pulmonale (principal)

== ENCOUNTER → 2021-08-06 | Outpatient (CLI) | payer MEDICARE, OTHER ==
[2021-08-06 13:50] LABS: BASO % 0.7 % (0.0-1.0); EOS # 0.1 10^3/uL (0.0-0.5); EOS % 1.6 % (0.0-3.0); HEMATOCRIT 42.6 % (36.0-47.0); HEMOGLOBIN 13.6 g/dl (12.0-15.5); LYMPH # 1.4 10^3/uL (1.5-5.0); LYMPH % 24.4 % (24.0-44.0); MEAN CORPUSCULAR HEMOGLOBIN 31.1 pg (27.0-33.0); MEAN CORPUSCULAR HGB CONC 31.9 g/dl (32.0-36.5); MEAN CORPUSCULAR VOLUME 97.3 fl (80.0-96.0); MONO # 0.4 10^3/uL (0.0-0.8); MONO % 6.9 % (2.0-8.0); NEUTROPHILS # 3.7 10^3/uL (1.5-8.5); PLATELET COUNT, AUTOMATED 273 10^3/uL (150-450); RED BLOOD COUNT 4.38 10^6/uL (4.00-5.40); WHITE BLOOD COUNT 5.7 10^3/uL (4.0-10.0)
[2021-08-06 16:12] LABS: ALBUMIN 3.6 GM/DL (3.2-5.2); ALT/SGPT 24 U/L (12-78); BILIRUBIN,TOTAL 0.6 MG/DL (0.2-1.0); BLOOD UREA NITROGEN 22 MG/DL (7-18); CALCIUM LEVEL 8.7 MG/DL (8.8-10.2); CARBON DIOXIDE LEVEL 29 MEQ/L (21-32); CHLORIDE LEVEL 111 MEQ/L (98-107); CHOLESTEROL LEVEL 144 MG/DL (<200); CHOLESTEROL RISK RATIO 2.117 (<5); CREATININE FOR GFR 0.81 MG/DL (0.55-1.30); GLOMERULAR FILTRATION RATE > 60.0 (>39); GLUCOSE, FASTING 89 MG/DL (70-100); HDL CHOLESTEROL 68 MG/DL (>40); LDL CHOLESTEROL 65 MG/DL (<100); NON-HDL-C 76 MG/DL; POTASSIUM SERUM 4.5 MEQ/L (3.5-5.1); SODIUM LEVEL 143 MEQ/L (136-145); TOTAL PROTEIN 6.6 GM/DL (6.4-8.2); TRIGLYCERIDES LEVEL 57 MG/DL (<150)
[2021-08-06 18:14] LABS: HEMOGLOBIN A1c 5.3 %
== END ==
LOC: M PLALAB 10:25
PROVIDERS: ATTEND Nurse Practitioner Adult Health
DX: E78.00 Pure hypercholesterolemia, unspecified (principal)

== ENCOUNTER → 2021-08-28 | Outpatient (CLI) | payer MEDICARE, OTHER ==
[2021-08-28 14:06] LABS: INR 3.38; PROTHROMBIN TIME 34.5 SECONDS (12.7-14.5)
== END ==
LOC: M PLALAB 11:35
PROVIDERS: ATTEND Nurse Practitioner Adult Health
DX: I26.99 Other pulmonary embolism without acute cor pulmonale (principal)

== ENCOUNTER → 2021-09-27 | Outpatient (CLI) | payer MEDICARE, OTHER ==
[2021-09-27 11:42] LABS: INR 3.05; PROTHROMBIN TIME 31.9 SECONDS (12.7-14.5)
== END ==
LOC: M PLALAB 09-26 11:07
PROVIDERS: ATTEND Nurse Practitioner Adult Health
DX: I26.99 Other pulmonary embolism without acute cor pulmonale (principal)

== ENCOUNTER → 2021-10-29 | Outpatient (CLI) | payer MEDICARE, OTHER ==
[2021-10-29 17:43] LABS: INR 3.48; PROTHROMBIN TIME 35.2 SECONDS (12.7-14.5)
== END ==
LOC: M PLALAB 15:52
PROVIDERS: ATTEND Internal Medicine Pulmonary Disease
DX: I26.99 Other pulmonary embolism without acute cor pulmonale (principal)

== ENCOUNTER → 2021-11-26 | Outpatient (CLI) | payer MEDICARE, OTHER ==
[2021-11-26 18:25] LABS: INR 2.79; PROTHROMBIN TIME 29.9 SECONDS (12.5-14.5)
== END ==
LOC: M PLALAB 15:15
PROVIDERS: ATTEND Internal Medicine Pulmonary Disease
DX: I26.99 Other pulmonary embolism without acute cor pulmonale (principal)

== ENCOUNTER → 2021-12-24 | Outpatient (CLI) | payer MEDICARE, OTHER | LOC: M PLALAB 12:45 | PROVIDERS: ATTEND Internal Medicine Pulmonary Disease | DX: I26.99 Other pulmonary embolism without acute cor pulmonale (principal) ==

== ENCOUNTER → 2021-12-25 | Outpatient (REF) | payer MEDICARE, OTHER ==
[2021-12-25 15:43] LABS: INR 3.37; PROTHROMBIN TIME 34.7 SECONDS (12.5-14.5)
== END ==
LOC: M PLALAB 14:55
PROVIDERS: ATTEND Internal Medicine Pulmonary Disease
DX: I26.99 Other pulmonary embolism without acute cor pulmonale (principal)

== ENCOUNTER → 2022-01-07 | Outpatient (CLI) | payer MEDICARE, OTHER ==
[2022-01-07 16:36] LABS: INR 3.09; PROTHROMBIN TIME 32.4 SECONDS (12.5-14.5)
== END ==
LOC: M PLALAB 12:28
PROVIDERS: ATTEND Internal Medicine Pulmonary Disease
DX: I26.99 Other pulmonary embolism without acute cor pulmonale (principal)

== ENCOUNTER → 2022-02-05 | Outpatient (CLI) | payer MEDICARE, OTHER ==
[2022-02-05 13:47] LABS: INR 3.66; PROTHROMBIN TIME 36.9 SECONDS (12.5-14.5)
== END ==
LOC: M PLALAB 10:42
PROVIDERS: ATTEND Internal Medicine Pulmonary Disease
DX: I26.99 Other pulmonary embolism without acute cor pulmonale (principal)

== ENCOUNTER → 2022-02-12 | Outpatient (CLI) | payer MEDICARE, OTHER ==
[2022-02-12 13:56] LABS: INR 2.54; PROTHROMBIN TIME 27.8 SECONDS (12.5-14.5)
== END ==
LOC: M PLALAB 10:57
PROVIDERS: ATTEND Internal Medicine Pulmonary Disease
DX: I26.99 Other pulmonary embolism without acute cor pulmonale (principal)

== ENCOUNTER → 2022-02-26 | Outpatient (CLI) | payer MEDICARE, OTHER ==
[2022-02-26 15:36] LABS: INR 2.95; PROTHROMBIN TIME 31.2 SECONDS (12.5-14.5)
== END ==
LOC: M PLALAB 12:58
PROVIDERS: ATTEND Internal Medicine Pulmonary Disease
DX: I26.99 Other pulmonary embolism without acute cor pulmonale (principal)

== ENCOUNTER → 2022-03-25 | Outpatient (CLI) | payer MEDICARE, OTHER ==
[2022-03-25 14:10] LABS: INR 2.83; PROTHROMBIN TIME 30.2 SECONDS (12.5-14.5)
== END ==
LOC: M PLALAB 11:47
PROVIDERS: ATTEND Internal Medicine Pulmonary Disease
DX: I26.99 Other pulmonary embolism without acute cor pulmonale (principal); Z79.01 Long term (current) use of anticoagulants

== ENCOUNTER → 2022-04-23 | Outpatient (CLI) | payer MEDICARE, OTHER ==
[2022-04-23 13:56] LABS: INR 2.66; PROTHROMBIN TIME 28.8 SECONDS (12.5-14.5)
== END ==
LOC: M PLALAB 11:40
PROVIDERS: ATTEND Internal Medicine Pulmonary Disease
DX: I26.99 Other pulmonary embolism without acute cor pulmonale (principal)

== ENCOUNTER → 2022-05-27 | Outpatient (CLI) | payer MEDICARE, OTHER ==
[2022-05-27 14:04] LABS: INR 2.72; PROTHROMBIN TIME 29.3 SECONDS (12.5-14.5)
== END ==
LOC: M PLALAB 11:08
PROVIDERS: ATTEND Internal Medicine Pulmonary Disease
DX: I26.99 Other pulmonary embolism without acute cor pulmonale (principal)

== ENCOUNTER → 2022-06-27 | Outpatient (CLI) | payer MEDICARE, OTHER ==
[2022-06-27 13:48] LABS: INR 2.85; PROTHROMBIN TIME 30.4 SECONDS (12.5-14.5)
== END ==
LOC: M PLALAB 10:37
PROVIDERS: ATTEND Internal Medicine Pulmonary Disease
DX: I26.99 Other pulmonary embolism without acute cor pulmonale (principal)

== ENCOUNTER → 2022-07-30 | Outpatient (CLI) | payer MEDICARE, OTHER ==
[2022-07-30 13:59] LABS: INR 2.87; PROTHROMBIN TIME 30.5 SECONDS (12.5-14.5)
== END ==
LOC: M PLALAB 11:17
PROVIDERS: ATTEND Internal Medicine Pulmonary Disease
DX: I26.99 Other pulmonary embolism without acute cor pulmonale (principal)

== ENCOUNTER → 2022-08-01 | Outpatient (CLI) | payer MEDICARE, OTHER ==
[2022-08-01 14:12] LABS: BASO # 0.1 10^3/uL (0.0-0.2); BASO % 0.8 % (0.0-1.0); EOS # 0.1 10^3/uL (0.0-0.5); EOS % 1.8 % (0.0-3.0); HEMATOCRIT 42.8 % (36.0-47.0); HEMOGLOBIN 13.8 g/dl (12.0-15.5); LYMPH # 1.2 10^3/uL (1.5-5.0); LYMPH % 20.3 % (24.0-44.0); MEAN CORPUSCULAR HEMOGLOBIN 30.8 pg (27.0-33.0); MEAN CORPUSCULAR HGB CONC 32.2 g/dl (32.0-36.5); MEAN CORPUSCULAR VOLUME 95.5 fl (80.0-96.0); MONO # 0.4 10^3/uL (0.0-0.8); MONO % 7.2 % (2.0-8.0); NEUTROPHILS # 4.1 10^3/uL (1.5-8.5); NEUTROPHILS % 69.6 % (36.0-66.0); PLATELET COUNT, AUTOMATED 275 10^3/uL (150-450); RED BLOOD COUNT 4.48 10^6/uL (4.00-5.40)
[2022-08-01 14:13] LABS: FREE T4 1.11 NG/DL (0.89-1.76)
[2022-08-01 14:14] LABS: THYROID STIMULATING HORMONE 0.905 uIU/ML (0.55-4.78)
[2022-08-01 14:15] LABS: ALBUMIN 3.5 G/DL (3.2-5.2); ALKALINE PHOSPHATASE 56 U/L (46-116); ALT/SGPT 23 U/L (7.0-40); AST/SGOT 22 U/L (<34); BILIRUBIN,TOTAL 0.6 MG/DL (0.3-1.2); BLOOD UREA NITROGEN 23 MG/DL (9-23); CALCIUM LEVEL 8.5 MG/DL (8.3-10.6); CARBON DIOXIDE LEVEL 25 MMOL/L (20-31); CHLORIDE LEVEL 108 MMOL/L (98-107); CHOLESTEROL LEVEL 149 MG/DL (<200); CREATININE FOR GFR 0.81 MG/DL (0.55-1.30); GLOMERULAR FILTRATION RATE > 60.0 (>39); GLUCOSE, FASTING 89 MG/DL (74-106); HDL CHOLESTEROL 64.7 MG/DL (>40); LDL CHOLESTEROL 71.9 MG/DL (<100); NON-HDL-C 84.3 MG/DL; POTASSIUM SERUM 4.5 MMOL/L (3.5-5.1); SODIUM LEVEL 140 MMOL/L (136-145); TOTAL PROTEIN 6.3 G/DL (5.7-8.2); TRIGLYCERIDES LEVEL 62 MG/DL (<150)
== END ==
LOC: M PLALAB 10:23
PROVIDERS: ATTEND Nurse Practitioner Adult Health
DX: E78.00 Pure hypercholesterolemia, unspecified (principal)

== ENCOUNTER → 2022-08-26 | Outpatient (CLI) | payer MEDICARE, OTHER ==
[2022-08-26 13:56] LABS: INR 2.6; PROTHROMBIN TIME 28.3 SECONDS (12.5-14.5)
== END ==
LOC: M PLALAB 11:28
PROVIDERS: ATTEND Internal Medicine Pulmonary Disease
DX: I26.99 Other pulmonary embolism without acute cor pulmonale (principal)

== ENCOUNTER → 2022-09-24 | Outpatient (CLI) | payer MEDICARE, OTHER ==
[2022-09-24 16:14] LABS: INR 2.79; PROTHROMBIN TIME 28.8 SECONDS (12.5-14.5)
== END ==
LOC: M PLALAB 13:07
PROVIDERS: ATTEND Internal Medicine Pulmonary Disease
DX: I26.99 Other pulmonary embolism without acute cor pulmonale (principal)

== ENCOUNTER → 2022-10-29 | Outpatient (CLI) | payer MEDICARE, OTHER ==
[2022-10-29 15:48] LABS: INR 3.08; PROTHROMBIN TIME 31.1 SECONDS (12.5-14.5)
== END ==
LOC: M PLALAB 13:38
PROVIDERS: ATTEND Internal Medicine Pulmonary Disease
DX: I26.99 Other pulmonary embolism without acute cor pulmonale (principal)

== ENCOUNTER → 2022-11-26 | Outpatient (CLI) | payer MEDICARE, OTHER ==
[2022-11-26 15:58] LABS: INR 3.23; PROTHROMBIN TIME 32.2 SECONDS (12.5-14.5)
== END ==
LOC: M PLALAB 11:45
PROVIDERS: ATTEND Nurse Practitioner Adult Health
DX: I26.99 Other pulmonary embolism without acute cor pulmonale (principal)

== ENCOUNTER → 2022-12-10 | Outpatient (CLI) | payer MEDICARE, OTHER ==
[2022-12-10 15:58] LABS: INR 2.4; PROTHROMBIN TIME 25.3 SECONDS (12.5-14.5)
== END ==
LOC: M PLALAB 13:36
PROVIDERS: ATTEND Nurse Practitioner Adult Health
DX: I26.99 Other pulmonary embolism without acute cor pulmonale (principal)

== ENCOUNTER → 2022-12-20 | Outpatient (CLI) | payer MEDICARE, OTHER | LOC: M WHC 13:38 | PROVIDERS: ATTEND Family Medicine | DX: N95.0 Postmenopausal bleeding (principal) ==

== ENCOUNTER → 2022-12-25 | Outpatient (CLI) | payer MEDICARE, OTHER ==
[2022-12-25 17:08] LABS: INR 2.84; PROTHROMBIN TIME 28.8 SECONDS (12.5-14.5)
== END ==
LOC: M PLALAB 13:02
PROVIDERS: ATTEND Nurse Practitioner Adult Health
DX: I26.99 Other pulmonary embolism without acute cor pulmonale (principal)

== ENCOUNTER → 2023-01-22 | Outpatient (CLI) | payer MEDICARE, OTHER ==
[2023-01-22 13:51] LABS: INR 3.11; PROTHROMBIN TIME 30.9 SECONDS (12.5-14.5)
== END ==
LOC: M PLALAB 11:50
PROVIDERS: ATTEND Nurse Practitioner Adult Health
DX: I26.99 Other pulmonary embolism without acute cor pulmonale (principal)

== ENCOUNTER → 2023-01-31 | Outpatient (CLI) | payer MEDICARE, OTHER ==
[2023-01-31 10:58] LABS: BASO # 0.1 10^3/uL (0.0-0.2); BASO % 0.8 % (0.0-1.0); EOS # 0.1 10^3/uL (0.0-0.5); HEMATOCRIT 42.5 % (36.0-47.0); HEMOGLOBIN 13.9 g/dl (12.0-15.5); LYMPH # 1.2 10^3/uL (1.5-5.0); MEAN CORPUSCULAR HEMOGLOBIN 31.1 pg (27.0-33.0); MEAN CORPUSCULAR HGB CONC 32.7 g/dl (32.0-36.5); MEAN CORPUSCULAR VOLUME 95.1 fl (80.0-96.0); MONO # 0.5 10^3/uL (0.0-0.8); MONO % 7.8 % (2.0-8.0); NEUTROPHILS # 4.2 10^3/uL (1.5-8.5); NEUTROPHILS % 69.2 % (36.0-66.0); PLATELET COUNT, AUTOMATED 262 10^3/uL (150-450); RED BLOOD COUNT 4.47 10^6/uL (4.00-5.40); WHITE BLOOD COUNT 6.1 10^3/uL (4.0-10.0)
[2023-01-31 11:23] LABS: ALBUMIN 3.3 G/DL (3.2-5.2); ALKALINE PHOSPHATASE 49 U/L (46-116); ALT/SGPT 21 U/L (7.0-40); AST/SGOT 22 U/L (<34); BILIRUBIN,TOTAL 0.5 MG/DL (0.3-1.2); BLOOD UREA NITROGEN 15 MG/DL (9-23); CALCIUM LEVEL 9.1 MG/DL (8.3-10.6); CARBON DIOXIDE LEVEL 27 MMOL/L (20-31); CHLORIDE LEVEL 110 MMOL/L (98-107); CHOLESTEROL LEVEL 155 MG/DL (<200); CHOLESTEROL RISK RATIO 2.35 (<5); CREATININE FOR GFR 0.79 MG/DL (0.55-1.30); GLOMERULAR FILTRATION RATE > 60.0 (>39); GLUCOSE, FASTING 87 MG/DL (74-106); HDL CHOLESTEROL 65.8 MG/DL (>40); LDL CHOLESTEROL 75.8 MG/DL (<100); NON-HDL-C 89.2 MG/DL; POTASSIUM SERUM 4.2 MMOL/L (3.5-5.1); SODIUM LEVEL 145 MMOL/L (136-145); TOTAL PROTEIN 6.1 G/DL (5.7-8.2); TRIGLYCERIDES LEVEL 67 MG/DL (<150)
[2023-01-31 11:24] LABS: THYROID STIMULATING HORMONE 1.646 uIU/ML (0.55-4.78)
[2023-01-31 11:25] LABS: FREE T4 1.15 NG/DL (0.89-1.76)
== END ==
LOC: M PLALAB 08:54
PROVIDERS: ATTEND Family Medicine
DX: E78.00 Pure hypercholesterolemia, unspecified (principal)

== ENCOUNTER → 2023-02-17 | Outpatient (CLI) | payer MEDICARE, OTHER | LOC: M RAD 13:59 | PROVIDERS: ATTEND Nurse Practitioner Adult Health | DX: R01.1 Cardiac murmur, unspecified (principal); I65.29 Occlusion and stenosis of unspecified carotid artery ==

== ENCOUNTER → 2023-02-20 | Outpatient (CLI) | payer MEDICARE, OTHER ==
[2023-02-20 14:11] LABS: INR 2.64; PROTHROMBIN TIME 27.2 SECONDS (12.5-14.5)
== END ==
LOC: M PLALAB 11:34
PROVIDERS: ATTEND Nurse Practitioner Adult Health
DX: I26.99 Other pulmonary embolism without acute cor pulmonale (principal)

== ENCOUNTER 2023-02-27 11:09 | Day surgery (SDC) | payer MEDICARE, OTHER ==
[~2023-02-27] VITALS: Ht 170.2 cm; Wt 82.1 kg
[~2023-02-27 11:09] MED LIST changes: +KETOROLAC 60MG 2ML VIAL As Ordered ONE; +LIDOCAINE 2% 100MG/5ML SDV (FOR ANES.) As Ordered ONE; +LIVA4TAB PO; +LOVE1INJ SC; +MIDAZOLAM INJ 2MG/2ML VIAL As Ordered ONE; +ONDANSETRON 4MG 2ML VIAL As Ordered ONE; +fentaNYL 100 MCG/2 ML INJECTION As Ordered ONE; +propofoL 200 MG/20 ML VIAL As Ordered ONE
[2023-02-27] MEDS ORDERED: LR 1,000 ML IV SCH ×3 (11:45→12:50)
[2023-02-27 12:03] LABS: HEMATOCRIT 44.7 % (36.0-47.0); HEMOGLOBIN 14.4 g/dl (12.0-15.5); MEAN CORPUSCULAR HEMOGLOBIN 31.2 pg (27.0-33.0); MEAN CORPUSCULAR HGB CONC 32.2 g/dl (32.0-36.5); PLATELET COUNT, AUTOMATED 291 10^3/uL (150-450); RED BLOOD COUNT 4.61 10^6/uL (4.00-5.40); WHITE BLOOD COUNT 10.4 10^3/uL (4.0-10.0)
[2023-02-27 12:15] LABS: INR 1.12; PROTHROMBIN TIME 14.1 SECONDS (12.5-14.5)
[2023-02-27] MEDS ORDERED: ONDANSETRON 4MG 2ML VIAL IV PRN (12:30)
[2023-02-27] MEDS ORDERED: fentaNYL 100 MCG/2 ML INJECTION IV PRN (12:30)
[2023-02-27] MEDS ORDERED: oxyCODONE 5MG TAB PO PRN (12:30)
[2023-02-27] MEDS ORDERED: ACETAMINOPHEN 500 MG TAB PO ONE ×2 (12:50→15:05)
[2023-02-27 13:56] VITALS: BP 134/64; TEMP 97.9; O2SAT 96
== END 2023-02-27 15:06 | disposition home or self-care (01) ==
LOC: M SDC 11:09
PROVIDERS: ATTEND Specialist
DX: N84.0 Polyp of corpus uteri (principal); N84.1 Polyp of cervix uteri; N95.0 Postmenopausal bleeding; D25.1 Intramural leiomyoma of uterus; E78.00 Pure hypercholesterolemia, unspecified; Z79.899 Other long term (current) drug therapy; Z88.0 Allergy status to penicillin; Z79.01 Long term (current) use of anticoagulants; D68.59 Other primary thrombophilia; Z86.711 Personal history of pulmonary embolism; Z86.718 Personal history of other venous thrombosis and embolism
CPT/HCPCS: 36415; 58558; 85027; 85610; 85730; 88305; J1100; J1885; J2250; J2405; J3010

== ENCOUNTER → 2023-03-19 | Outpatient (CLI) | payer MEDICARE, OTHER ==
[~2023-03-19] MED LIST changes: -KETOROLAC 60MG 2ML VIAL As Ordered ONE; -LIDOCAINE 2% 100MG/5ML SDV (FOR ANES.) As Ordered ONE; -MIDAZOLAM INJ 2MG/2ML VIAL As Ordered ONE; -ONDANSETRON 4MG 2ML VIAL As Ordered ONE; -fentaNYL 100 MCG/2 ML INJECTION As Ordered ONE; -propofoL 200 MG/20 ML VIAL As Ordered ONE
[2023-03-19 13:26] LABS: INR 2.61
== END ==
LOC: M PLALAB 10:58
PROVIDERS: ATTEND Nurse Practitioner Adult Health
DX: I26.99 Other pulmonary embolism without acute cor pulmonale (principal)

== ENCOUNTER → 2023-04-21 | Outpatient (CLI) | payer MEDICARE, OTHER ==
[2023-04-21 15:38] LABS: INR 2.62
== END ==
LOC: M PLALAB 13:26
PROVIDERS: ATTEND Nurse Practitioner Adult Health
DX: I26.99 Other pulmonary embolism without acute cor pulmonale (principal)

== ENCOUNTER → 2023-05-22 | Outpatient (CLI) | payer MEDICARE, OTHER ==
[2023-05-22 10:49] LABS: INR 2.5; PROTHROMBIN TIME 26.1 SECONDS (12.5-14.5)
== END ==
LOC: M PLALAB 08:57
PROVIDERS: ATTEND Internal Medicine Pulmonary Disease
DX: I26.99 Other pulmonary embolism without acute cor pulmonale (principal)

== ENCOUNTER → 2023-06-24 | Outpatient (CLI) | payer MEDICARE, OTHER ==
[~2023-06-24] MED LIST changes: +ROSU5TAB40 PO; -ROSU5TAB5 PO
[2023-06-24 13:10] LABS: INR 3.06; PROTHROMBIN TIME 30.5 SECONDS (12.5-14.5)
== END ==
LOC: M PLALAB 09:14
PROVIDERS: ATTEND Internal Medicine Pulmonary Disease
DX: I26.99 Other pulmonary embolism without acute cor pulmonale (principal)

== ENCOUNTER → 2023-07-24 | Outpatient (CLI) | payer MEDICARE, OTHER ==
[2023-07-24 15:36] LABS: INR 2.75; PROTHROMBIN TIME 28.1 SECONDS (12.5-14.5)
== END ==
LOC: M PLALAB 14:01
PROVIDERS: ATTEND Internal Medicine Pulmonary Disease
DX: I26.99 Other pulmonary embolism without acute cor pulmonale (principal)

== ENCOUNTER → 2023-08-05 | Outpatient (CLI) | payer MEDICARE, OTHER ==
[2023-08-05 10:19] LABS: BASO # 0.1 10^3/uL (0.0-0.2); BASO % 0.8 % (0.0-1.0); EOS # 0.2 10^3/uL (0.0-0.5); EOS % 2.3 % (0.0-3.0); HEMATOCRIT 42.8 % (36.0-47.0); HEMOGLOBIN 14.1 g/dl (12.0-15.5); LYMPH # 1.3 10^3/uL (1.5-5.0); LYMPH % 14.2 % (24.0-44.0); MEAN CORPUSCULAR HEMOGLOBIN 31.4 pg (27.0-33.0); MEAN CORPUSCULAR HGB CONC 32.9 g/dl (32.0-36.5); MEAN CORPUSCULAR VOLUME 95.3 fl (80.0-96.0); MONO # 0.5 10^3/uL (0.0-0.8); MONO % 5.7 % (2.0-8.0); NEUTROPHILS % 76.8 % (36.0-66.0); PLATELET COUNT, AUTOMATED 258 10^3/uL (150-450); RED BLOOD COUNT 4.49 10^6/uL (4.00-5.40); WHITE BLOOD COUNT 9.1 10^3/uL (4.0-10.0)
[2023-08-05 10:44] LABS: ALBUMIN 3.2 G/DL (3.2-5.2); ALKALINE PHOSPHATASE 60 U/L (46-116); ALT/SGPT 19 U/L (7.0-40); AST/SGOT 18 U/L (<34); BILIRUBIN,TOTAL 0.6 MG/DL (0.3-1.2); BLOOD UREA NITROGEN 20 MG/DL (9-23); CALCIUM LEVEL 8.6 MG/DL (8.3-10.6); CARBON DIOXIDE LEVEL 26 MMOL/L (20-31); CHLORIDE LEVEL 111 MMOL/L (98-107); CHOLESTEROL LEVEL 150 MG/DL (<200); CHOLESTEROL RISK RATIO 2.68 (<5); CREATININE FOR GFR 0.73 MG/DL (0.55-1.30); GLOMERULAR FILTRATION RATE > 60.0 (>39); GLUCOSE, FASTING 93 MG/DL (74-106); HDL CHOLESTEROL 55.8 MG/DL (>40); LDL CHOLESTEROL 75.8 MG/DL (<100); NON-HDL-C 94.2 MG/DL; POTASSIUM SERUM 4.1 MMOL/L (3.5-5.1); SODIUM LEVEL 141 MMOL/L (136-145); TOTAL PROTEIN 6.3 G/DL (5.7-8.2); TRIGLYCERIDES LEVEL 92 MG/DL (<150)
== END ==
LOC: M PLALAB 08:21
PROVIDERS: ATTEND Nurse Practitioner Adult Health
DX: E78.00 Pure hypercholesterolemia, unspecified (principal)

== ENCOUNTER → 2023-08-25 | Outpatient (CLI) | payer MEDICARE, OTHER ==
[2023-08-25 13:18] LABS: INR 2.98; PROTHROMBIN TIME 29.9 SECONDS (12.5-14.5)
== END ==
LOC: M PLALAB 10:09
PROVIDERS: ATTEND Internal Medicine Pulmonary Disease
DX: I26.99 Other pulmonary embolism without acute cor pulmonale (principal)

== ENCOUNTER → 2023-09-26 | Outpatient (CLI) | payer MEDICARE, OTHER ==
[2023-09-26 13:14] LABS: INR 2.28; PROTHROMBIN TIME 24.3 SECONDS (12.5-14.5)
== END ==
LOC: M PLALAB 10:10
PROVIDERS: ATTEND Internal Medicine Pulmonary Disease
DX: I26.99 Other pulmonary embolism without acute cor pulmonale (principal)

== ENCOUNTER → 2023-10-14 | Outpatient (CLI) | payer MEDICARE, OTHER ==
[2023-10-14 12:41] LABS: INR 3.97; PROTHROMBIN TIME 37.2 SECONDS (12.5-14.5)
== END ==
LOC: M PLALAB 11:12
PROVIDERS: ATTEND Internal Medicine Pulmonary Disease
DX: I26.99 Other pulmonary embolism without acute cor pulmonale (principal)

== ENCOUNTER → 2023-10-28 | Outpatient (CLI) | payer MEDICARE, OTHER ==
[2023-10-28 13:03] LABS: INR 3.32; PROTHROMBIN TIME 32.5 SECONDS (12.5-14.5)
== END ==
LOC: M PLALAB 10:42
PROVIDERS: ATTEND Internal Medicine Pulmonary Disease
DX: I26.99 Other pulmonary embolism without acute cor pulmonale (principal)

== ENCOUNTER → 2023-11-26 | Outpatient (CLI) | payer MEDICARE, OTHER ==
[2023-11-26 15:26] LABS: INR 3.19; PROTHROMBIN TIME 31.5 SECONDS (12.5-14.5)
== END ==
LOC: M PLALAB 13:16
PROVIDERS: ATTEND Internal Medicine Pulmonary Disease
DX: I26.99 Other pulmonary embolism without acute cor pulmonale (principal)

== ENCOUNTER 2023-12-29 09:18 | Inpatient (IN) | payer MEDICARE, OTHER ==
[~2023-12-29] VITALS: Ht 170.2 cm; Wt 85.9 kg
[~2023-12-29 09:18] MED LIST changes: -ROSU5TAB40 PO; +ROSU5TAB49 PO
[2023-12-29 11:38] LABS: BASO % 0.2 % (0.0-1.0); HEMATOCRIT 39.5 % (36.0-47.0); HEMOGLOBIN 13.1 g/dl (12.0-15.5); LYMPH # 0.7 10^3/uL (1.5-5.0); LYMPH % 3.4 % (24.0-44.0); MEAN CORPUSCULAR HEMOGLOBIN 31.2 pg (27.0-33.0); MEAN CORPUSCULAR HGB CONC 33.2 g/dl (32.0-36.5); MONO # 0.4 10^3/uL (0.0-0.8); MONO % 1.9 % (2.0-8.0); NEUTROPHILS # 17.9 10^3/uL (1.5-8.5); NEUTROPHILS % 94.1 % (36.0-66.0); PLATELET COUNT, AUTOMATED 280 10^3/uL (150-450)
[2023-12-29] MEDS: ONDANSETRON 4MG 2ML VIAL IV ONE ×2 (11:46→14:04)
[2023-12-29] MEDS: KETOROLAC 30 MG/ML 1ML VIAL IV ONE (11:47)
[2023-12-29 11:57] LABS: INR 4.06; PARTIAL THROMBOPLASTIN TIME 41.3 SECONDS (24.8-34.2); PROTHROMBIN TIME 39.1 SECONDS (12.5-14.5)
[2023-12-29 12:02] LABS: LIPASE 22 U/L (12-53)
[2023-12-29 12:04] LABS: ALBUMIN 3.3 G/DL (3.2-5.2); ALKALINE PHOSPHATASE 55 U/L (35-104); ALT/SGPT 18 U/L (7.0-40); AST/SGOT 18 U/L (<34); BILIRUBIN,DIRECT 0.2 MG/DL (<0.4); BILIRUBIN,TOTAL 0.7 MG/DL (0.3-1.2); BLOOD UREA NITROGEN 23 MG/DL (9-23); CALCIUM LEVEL 9.1 MG/DL (8.3-10.6); CARBON DIOXIDE LEVEL 22 MMOL/L (20-31); CHLORIDE LEVEL 108 MMOL/L (98-107); CREATININE FOR GFR 0.71 MG/DL (0.55-1.30); GLOMERULAR FILTRATION RATE > 60.0 (>39); GLUCOSE, FASTING 148 MG/DL (74-106); SODIUM LEVEL 139 MMOL/L (136-145); TOTAL PROTEIN 6.6 G/DL (5.7-8.2)
[2023-12-29] MEDS ORDERED: ISOVUE-370 76% 100ML VIAL As Ordered ONE (12:15)
[2023-12-29] MEDS: NS 500 ML IV ONE (12:41)
[2023-12-29] MEDS: NS 1,000 ML IV ONE (13:45)
[2023-12-29] MEDS ORDERED: LevoFLOXacin IV 750 MG in IV 1 EA IV ONE (13:45)
[2023-12-29] MEDS: ACETAMINOPHEN *IV* 1,000 MG in IV 1 EA IV ONE (14:05)
[2023-12-29] MEDS ORDERED: WARF-20 PO (14:14)
[2023-12-29] MEDS ORDERED: WARF4TAB51 PO (14:14)
[2023-12-29] MEDS ORDERED: VITA200016 PO (14:17)
[2023-12-29] MEDS ORDERED: CALC600T60 PO (14:17)
[2023-12-29] MEDS ORDERED: LUTE10TA PO (14:17)
[2023-12-29] MEDS ORDERED: MULT-193 PO (14:17)
[2023-12-29] MEDS ORDERED: HOME MED LIST COMPLETE! XX SCH (14:20)
[2023-12-29] MEDS: MORPHINE 4 MG/ML 1ML VIAL IV ONE (14:58)
[2023-12-29] MEDS ORDERED: PIPERACILLIN/TAZOBACTAM SOD 3.375 GM in DEXTROSE 5% (D5W) ADV/MINI-BAG 50 ML IV SCH (16:00)
[2023-12-29 16:07] LABS: CARCINOEMBRYONIC ANTIGEN < 2.0 NG/ML (<2.5)
[2023-12-29 16:13] LABS: CA19-9 TUMOR MARKER,CARBOHYDRA 12.5 U/ML (<35.0)
[2023-12-29 16:30] VITALS: BP 124/73; TEMP 97.2; O2SAT 96
[2023-12-29 17:14] VITALS: BP 124/73; TEMP 97.2; O2SAT 96
[2023-12-29] MEDS: PIPERACILLIN/TAZOBACTAM SOD 4.5 GM in DEXTROSE 5% (D5W) ADV/MINI-BAG 50 ML IV SCH (18:08)
[2023-12-29] MEDS ORDERED: VANCOMYCIN/WATER FOR INJ 1,000 MG in IV 1 EA IV SCH (18:50)
[2023-12-29] MEDS: MORPHINE 4 MG/ML 1ML VIAL IV PRN (18:51)
[2023-12-29] MEDS ORDERED: METOCLOPRAMIDE INJ 10MG/2ML VIAL IV PRN (19:00)
[2023-12-29] MEDS: VANCOMYCIN 1,750 MG/350 ML IV BAG *LOAD IV ONE (19:31)
[2023-12-29] MEDS: ONDANSETRON 4MG 2ML VIAL IV PRN (19:34)
[2023-12-29] MEDS ORDERED: ONDANSETRON 4MG 2ML VIAL IV SCH (21:00)
[2023-12-29 21:59] VITALS: BP 105/65; TEMP 97.5; O2SAT 95
[2023-12-29] MEDS ORDERED: ACETAMINOPHEN 325 MG TAB PO PRN (22:00)
[2023-12-29 23:21] VITALS: BP 107/64; TEMP 97; O2SAT 95
[2023-12-30] VITALS (8 sets, daily range): BP systolic 109–142; BP diastolic 62–76; TEMP 97.3–98.6; O2SAT 92–98
[2023-12-30] MEDS: VANCOMYCIN 1,000MG/200 ML IV BAG IV SCH (03:19)
[2023-12-30] MEDS: KETOROLAC 30 MG/ML 1ML VIAL IV ONE (05:23)
[2023-12-30 06:29] LABS: MEAN CORPUSCULAR HEMOGLOBIN 31.8 pg (27.0-33.0); MEAN CORPUSCULAR HGB CONC 32.7 g/dl (32.0-36.5); MEAN CORPUSCULAR VOLUME 97.2 fl (80.0-96.0); PLATELET COUNT, AUTOMATED 253 10^3/uL (150-450); RED BLOOD COUNT 2.86 10^6/uL (4.00-5.40); WHITE BLOOD COUNT 23.5 10^3/uL (4.0-10.0)
[2023-12-30 06:46] LABS: HEMATOCRIT 27.8 % (36.0-47.0); HEMOGLOBIN 9.1 g/dl (12.0-15.5)
[2023-12-30 07:01] LABS: CALCIUM LEVEL 8.5 MG/DL (8.3-10.6); CREATININE FOR GFR 1.41 MG/DL (0.55-1.30); GLOMERULAR FILTRATION RATE 38.7 (>39); MAGNESIUM LEVEL 1.8 MG/DL (1.8-2.4); POTASSIUM SERUM 4.4 MMOL/L (3.5-5.1)
[2023-12-30 07:33] LABS: PROTHROMBIN TIME 54.9 SECONDS (12.5-14.5)
[2023-12-30 07:43] LABS: INR 6.38
[2023-12-30 12:21] LABS: C REACTIVE PROTEIN QUANTITATIV 2.9 MG/DL (<1.0)
[2023-12-30] MEDS: NS 1,000 ML IV SCH (12:39)
[2023-12-30] MEDS: NS 1,000 ML IV ONE (14:24)
[2023-12-30 15:06] LABS: CALCIUM LEVEL 8.1 MG/DL (8.3-10.6); CREATININE FOR GFR 1.85 MG/DL (0.55-1.30); GLOMERULAR FILTRATION RATE 28.3 (>39); POTASSIUM SERUM 4.5 MMOL/L (3.5-5.1)
[2023-12-30 15:10] LABS: VANCOMYCIN LEVEL TROUGH 25.5 UG/ML (10.0-20.0)
[2023-12-31] VITALS (13 sets, daily range): BP systolic 129–144; BP diastolic 61–70; TEMP 97.8–99.2; O2SAT 90–94
[2023-12-31 01:08] LABS: HEMATOCRIT 19.5 % (36.0-47.0); HEMOGLOBIN 6.5 g/dl (12.0-15.5)
[2023-12-31] MEDS: PANTOPRAZOLE 40MG VIAL IV ONE (02:02)
[2023-12-31 02:31] LABS: HEMATOCRIT 19.9 % (36.0-47.0); HEMOGLOBIN 6.6 g/dl (12.0-15.5)
[2023-12-31 04:25] LABS: BASO % 0.1 % (0.0-1.0); LYMPH # 0.9 10^3/uL (1.5-5.0); LYMPH % 3.9 % (24.0-44.0); MEAN CORPUSCULAR HEMOGLOBIN 31.5 pg (27.0-33.0); MEAN CORPUSCULAR HGB CONC 32.7 g/dl (32.0-36.5); MEAN CORPUSCULAR VOLUME 96.2 fl (80.0-96.0); MONO # 2.5 10^3/uL (0.0-0.8); MONO % 10.3 % (2.0-8.0); NEUTROPHILS # 20.6 10^3/uL (1.5-8.5); NEUTROPHILS % 85.1 % (36.0-66.0); PLATELET COUNT, AUTOMATED 217 10^3/uL (150-450); RED BLOOD COUNT 2.13 10^6/uL (4.00-5.40); WHITE BLOOD COUNT 24.2 10^3/uL (4.0-10.0)
[2023-12-31 04:27] LABS: HEMATOCRIT 20.5 % (36.0-47.0); HEMOGLOBIN 6.7 g/dl (12.0-15.5)
[2023-12-31 05:03] LABS: PROTHROMBIN TIME 85.1 SECONDS (12.5-14.5)
[2023-12-31 05:04] LABS: ALBUMIN 2.7 G/DL (3.2-5.2); BILIRUBIN,TOTAL 0.6 MG/DL (0.3-1.2); CALCIUM LEVEL 7.8 MG/DL (8.3-10.6); CREATININE FOR GFR 2.06 MG/DL (0.55-1.30); MAGNESIUM LEVEL 1.9 MG/DL (1.8-2.4); POTASSIUM SERUM 4.5 MMOL/L (3.5-5.1); TOTAL PROTEIN 5.4 G/DL (5.7-8.2)
[2023-12-31 05:05] LABS: INR 11.36
[2023-12-31] MEDS: PHYTONADIONE 5 MG TAB PO ONE (05:59)
[2023-12-31] MEDS: PANTOPRAZOLE SODIUM 40 MG in D5W 50 ML IV SCH (06:57)
[2023-12-31 07:52] LABS: PROTHROMBIN TIME 88.1 SECONDS (12.5-14.5)
[2023-12-31 08:06] LABS: INR 11.89
[2023-12-31 09:10] LABS: D-DIMER QUANT 0.93 ug/mL (<0.5)
[2023-12-31 11:52] LABS: PROTHROMBIN TIME 69.2 SECONDS (12.5-14.5)
[2023-12-31 11:59] LABS: INR 8.65
[2023-12-31] MEDS: PIPERACILLIN/TAZOBACTAM SOD 2.25 GM in DEXTROSE 5% (D5W) ADV/MINI-BAG 50 ML IV SCH (13:10)
[2023-12-31 14:20] LABS: BASO # 0.1 10^3/uL (0.0-0.2); BASO % 0.3 % (0.0-1.0); HEMATOCRIT 27.1 % (36.0-47.0); HEMOGLOBIN 9.1 g/dl (12.0-15.5); LYMPH # 0.8 10^3/uL (1.5-5.0); MEAN CORPUSCULAR HEMOGLOBIN 31.2 pg (27.0-33.0); MEAN CORPUSCULAR HGB CONC 33.6 g/dl (32.0-36.5); MEAN CORPUSCULAR VOLUME 92.8 fl (80.0-96.0); MONO % 10.4 % (2.0-8.0); NEUTROPHILS # 23.2 10^3/uL (1.5-8.5); NEUTROPHILS % 85.4 % (36.0-66.0); PLATELET COUNT, AUTOMATED 197 10^3/uL (150-450); RED BLOOD COUNT 2.92 10^6/uL (4.00-5.40); WHITE BLOOD COUNT 27.1 10^3/uL (4.0-10.0)
[2023-12-31 14:55] LABS: MONO # 2.8 10^3/uL (0.0-0.8)
[2024-01-07 17:03] LABS: HE4 106 pmol/L
== END 2023-12-31 15:15 | disposition short-term general hospital (02) | DRG 872 ==
LOC: M ED 09:18 → M ED INP 15:20 → M MS5PR 16:30 → M PCU 12-30 14:15
PROVIDERS: ADMIT Student in an Organized Health Care Education/Training Program; ATTEND Student in an Organized Health Care Education/Training Program
PROC: 30233N1 Transfusion of Nonautologous Red Blood Cells into Peripheral Vein, Percutaneous Approach (ICD-10-PCS; principal; 2023-12-31)
DX: A41.9 Sepsis, unspecified organism (principal); D68.59 Other primary thrombophilia; L97.228 Non-pressure chronic ulcer of left calf with other specified severity; L97.528 Non-pressure chronic ulcer of other part of left foot with other specified severity; N17.9 Acute kidney failure, unspecified; J90 Pleural effusion, not elsewhere classified; J98.11 Atelectasis; N13.1 Hydronephrosis with ureteral stricture, not elsewhere classified; D62 Acute posthemorrhagic anemia; E86.1 Hypovolemia; N18.9 Chronic kidney disease, unspecified; R19.09 Other intra-abdominal and pelvic swelling, mass and lump; I87.2 Venous insufficiency (chronic) (peripheral); N28.1 Cyst of kidney, acquired; D25.9 Leiomyoma of uterus, unspecified; R11.2 Nausea with vomiting, unspecified; E78.5 Hyperlipidemia, unspecified; Z86.711 Personal history of pulmonary embolism; Z86.718 Personal history of other venous thrombosis and embolism; Z95.828 Presence of other vascular implants and grafts; Z79.01 Long term (current) use of anticoagulants; Z79.899 Other long term (current) drug therapy; Z88.0 Allergy status to penicillin; Z91.040 Latex allergy status

== ENCOUNTER → 2024-10-26 | Outpatient (CLI) | payer MEDICARE, OTHER ==
[~2024-10-26] MED LIST changes: +CALC600T60 PO; +LUTE10TA PO; +MULT-193 PO; +VITA200016 PO; +WARF-20 PO
[2024-10-26 10:54] LABS: BASO # 0.1 10^3/uL (0.0-0.2); BASO % 0.8 % (0.0-1.0); EOS # 0.2 10^3/uL (0.0-0.5); EOS % 2.6 % (0.0-3.0); LYMPH # 1.6 10^3/uL (1.5-5.0); LYMPH % 25.8 % (24.0-44.0); MONO # 0.4 10^3/uL (0.0-0.8); MONO % 6.2 % (2.0-8.0); NEUTROPHILS # 4.0 10^3/uL (1.5-8.5); NEUTROPHILS % 64.3 % (36.0-66.0); PLATELET COUNT, AUTOMATED 295 10^3/uL (150-450)
[2024-10-26 11:21] LABS: ALT/SGPT 17.0 U/L (7.0-40); AST/SGOT 23.0 U/L (<34); CALCIUM LEVEL 9.6 MG/DL (8.3-10.6); CARBON DIOXIDE LEVEL 29.0 MMOL/L (20-31); CHLORIDE LEVEL 107.0 MMOL/L (98-107); CHOLESTEROL LEVEL 175.0 MG/DL (<200); CHOLESTEROL RISK RATIO 2.67 (<5); CREATININE FOR GFR 0.81 MG/DL (0.55-1.30); GLOMERULAR FILTRATION RATE 75.2 (>39); IRON (FE) 72.0 UG/DL (50-170); LDL CHOLESTEROL 85.4 MG/DL (<100); NON-HDL-C 109.6 MG/DL; PERCENT SATURATION 24.8 % (13.2-45.0); POTASSIUM SERUM 4.2 MMOL/L (3.5-5.1); SODIUM LEVEL 143.0 MMOL/L (136-145); TRIGLYCERIDES LEVEL 121.0 MG/DL (<150)
[2024-10-26 11:22] LABS: FREE T4 1.4 NG/DL (0.89-1.76)
[2024-10-26 11:23] LABS: TOTAL 25(OH) VITAMIN D 30.1 NG/ML (20.0-100.0); VITAMIN B12 LEVEL 310.0 PG/ML (211-911)
== END ==
LOC: M PLALAB 08:07
PROVIDERS: ATTEND Nurse Practitioner Adult Health
DX: E78.00 Pure hypercholesterolemia, unspecified (principal); Z13.0 Encounter for screening for diseases of the blood and blood-forming organs and certain disorders involving the immune mechanism; M85.80 Other specified disorders of bone density and structure, unspecified site; D50.9 Iron deficiency anemia, unspecified